=== PATIENT | male | born 2000 | race Caucasian/White ===

== ENCOUNTER 2022-10-21 19:07 | Emergency (ER) | payer SELFPAY ==
[~2022-10-21] VITALS: Ht 170.2 cm; Wt 59.1 kg
[2022-10-21] MEDS ORDERED: ACETAMINOPHEN 500 MG TABLET PO ONE (19:30)
[2022-10-21 19:31] LABS: BASOPHILS % (AUTO) 0.1 % (0.0-2.0); EOSINOPHILS % (AUTO) 0.1 % (1.0-6.0); HEMOGLOBIN 12.7 g/dL (13.5-17.5); LYMPHOCYTES # (AUTO) 0.5 K/uL (1.0-4.8); LYMPHOCYTES % (AUTO) 11.5 % (22.0-44.0); MEAN CORPUSCULAR HEMOGLOBIN 31.5 pg (26.0-34.0); MEAN CORPUSCULAR HGB CONC 35.3 G/dL (31.0-37.0); MEAN CORPUSCULAR VOLUME 89 fL (80-100); MONOCYTES # (AUTO) 0.6 K/uL (0.1-1.0); MONOCYTES % (AUTO) 12.3 % (2.0-9.0); NEUTROPHILS # (AUTO) 3.6 K/uL (1.8-7.7); PLATELET COUNT (AUTO) 246 K/uL (150-450); RED BLOOD CELL COUNT(AUTO) 4.03 MIL/uL (4.50-5.90); RED CELL DISTRIBUTION WIDTH 12.5 % (11.5-14.5)
[2022-10-21 19:42] LABS: ANION GAP 5 mmol/L (8-16); CALCIUM, TOTAL 9.2 mg/dL (8.8-10.5); CARBON DIOXIDE 29 mmol/L (22-29); CHLORIDE 96 mmol/L (98-107); CREATININE 1.03 mg/dL (0.60-1.30); GLUCOSE,RANDOM 97 mg/dL (70-110); POTASSIUM 3.6 mmol/L (3.5-5.1); SODIUM SERUM 130 mmol/L (136-145); UREA NITROGEN, BLOOD 13 mg/dL (7-18)
[2022-10-21 19:43] LABS: GLOMERULAR FILTR. RATE CALC > 60 mL/min (>60)
[2022-10-21 19:44] LABS: COVID AG,FIA SOURCE NASOPHARYNGEAL
[2022-10-21 19:49] LABS: ALANINE AMINOTRANSFERASE 16 U/L (12-78); ALBUMIN 4.1 g/dL (3.4-5.0); ALKALINE PHOSPHATASE 76 U/L (46-116); ASPARTATE AMINOTRANSFERASE 19 U/L (15-37); BILIRUBIN,TOTAL 0.5 mg/dL (0.1-1.0); LIPASE 58 U/L (73-393)
[2022-10-21] MEDS ORDERED: KETOROLAC TROMETHAMINE 30 MG/ML VIAL IVP ONE (20:00)
[2022-10-21] MEDS ORDERED: SODIUM CHLORIDE 0.9% 1,000 ML IV ONE (20:00)
[2022-10-21 20:03] LABS: INFLUENZA TYPE B NEGATIVE FOR TYPE B (NEGATIVE)
[2022-10-21 20:28] LABS: INFLUENZA TYPE A POSITIVE FOR TYPE A (NEGATIVE)
[2022-10-21 20:45] VITALS: BP 128/60
[2022-10-21] MEDS ORDERED: IBUP-1492 PO (21:13)
[2022-10-21] MEDS ORDERED: AZIT250T9 PO (21:13)
[2022-10-21] MEDS ORDERED: BENZ-70 PO (21:13)
== END 2022-10-21 21:34 | disposition home or self-care (01) ==
LOC: EMS 19:14
DX: J10.1 Influenza due to other identified influenza virus with other respiratory manifestations (principal); J18.9 Pneumonia, unspecified organism; R10.13 Epigastric pain; Z20.822 Contact with and (suspected) exposure to COVID-19
CPT/HCPCS: 99284; 74176; 96374; 96361; 87426; 80053; 83690; 85025; 87804; 36415; J1885; J7030